=== PATIENT | male | born 2000 | race Caucasian/White ===

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

== ENCOUNTER 2022-11-22 03:56 | Emergency (ER) | payer BC ==
[~2022-11-22] VITALS: Ht 170.8 cm; Wt 62.7 kg
[~2022-11-22 03:56] MED LIST: FAMO-119 PO
[2022-11-22 03:58] VITALS: BP 150/98
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
== END 2022-11-22 04:59 | disposition home or self-care (01) ==
LOC: EDUNIT# 03:56 → ER FS 03:58
DX: R04.0 Epistaxis (principal); F17.210 Nicotine dependence, cigarettes, uncomplicated; Z28.310 Unvaccinated for COVID-19; V48.5XXA Car driver injured in noncollision transport accident in traffic accident, initial encounter; Y92.410 Unspecified street and highway as the place of occurrence of the external cause
CPT/HCPCS: 70450; 72125